=== PATIENT | male | born 1995 | race African-American/Black ===

== ENCOUNTER 2018-12-25 05:31 | Inpatient (IN) | payer MEDICAID ==
[~2018-12-25] VITALS: Ht 177.8 cm; Wt 56.4 kg
[2018-12-25 05:35] VITALS: Ht 177.8 cm; Wt 56.4 kg
[2018-12-25 06:37] LABS: BASOPHIL % 0.6 % (0-2); PLATELET COUNT 276 x10^3mcL (130-400)
[2018-12-25 06:40] LABS: RED CELL DISTRIBUTION WIDTH 14.7 % (11.5-14.5)
--- NOTE | 2018-12-25 06:52 | NUR ---
BIB AMBULANCE, PATIENT FOUND ASLEEP ON A BENCH, DIFFICULT TO AROUSE, PATIENT IS CONFUSED, AND REFUSES TO GIVE HIS NAME
[2018-12-25 06:59] LABS: CARBON DIOXIDE 32.5 mmol/L (21-32); CHLORIDE SERUM 103 mmol/L (98-107); CREATININE SERUM 0.9 mg/dL (0.7-1.3); GFR1 > 60 mL/min; GLUCOSE SERUM 104 mg/dL (74-106); POTASSIUM SERUM 3.6 mmol/L (3.5-5.1); SODIUM SERUM 141 mmol/L (136-145)
[2018-12-25 07:00] LABS: ALBUMIN 3.7 g/dL (3.4-5.0); ALKALINE PHOSPHATASE 100 U/L (46-116); ALT/SGPT 34 U/L (16-63); AST/SGOT 26 U/L (15-37); BILIRUBIN TOTAL 0.45 mg/dL (0.20-1.00); TOTAL PROTEIN, SERUM 7.3 g/dL (6.4-8.2)
--- NOTE | 2018-12-25 07:13 | NUR ---
PT IS AWAKE TO VERBAL STIMULI. PT STATED IS NAME IS YARELIS ENRIQUEZ WITH BIRTHDAY OF October.
--- NOTE | 2018-12-25 08:38 | NUR ---
STRAIGHT CATH PROCEDURE PERFORMED. PT TOLERATED WELL. CHAPARONED BY CHIKA MCKNIGHT. PT BEGAN LAUGHING DURING PROCEDURE.
--- NOTE | 2018-12-25 08:39 | NUR ---
PT REFUSES TO ANSWER ANY OTHER QUESTIONS AT THIS TIME AND REFUSES TO SPEAK TO US BUT RESPONDS TO VERBAL COMMAND
--- NOTE | 2018-12-25 09:34 | NUR ---
SPOKE WITH FOR TELE PSYCH CONSULT
--- NOTE | 2018-12-25 09:46 | NUR ---
PER , PT NEEDS TO BE PLACED ON 5150 FOR GRAVELY DISABLED. MADE AWARE
[2018-12-25 10:01] LABS: AMPHETAMINE QUAL UR NONE DETECTED (See below)
--- NOTE | 2018-12-25 10:03 | NUR ---
CALLED [facility], SPOKE TO MCKAY REGARDING NEED FOR OFFICER TO WRITE [phone]. PER MCKAY, OFFICER WILL CALL ME BACK. PT MOVED TO BED 4 IN VIEW OF NURSES STATION FOR CLOSER OBSERVATION. BELONGINGS REMOVED FROM PT AND PLACED IN RADIO ROOM.
--- NOTE | 2018-12-25 10:22 | NUR ---
[facility] CALLED AND STATED HE WOULD SEND AN OFFICER OUT TO WRITE [phone]
--- NOTE | 2018-12-25 11:08 | NUR ---
COLBY, [facility] OFFICER ARRIVED TO INTERVIEW PT.
--- NOTE | 2018-12-25 12:33 | NUR ---
OFFICER COLBY WROTE [phone] HOLD FOR [facility]
--- NOTE | 2018-12-25 13:17 | NUR ---
OFFICER Kristin CARIAS IDENTIFIED PT WITH FINGER SCANNER [facility]
--- NOTE | 2018-12-25 16:56 | NUR ---
PT REFUSES TO ANSWER QUESTIONS, WENT BACK TO SLEEP. OFFERED FOOD AT THIS TIME
--- NOTE | 2018-12-25 17:29 | NUR ---
PT AWAKE AND TAKING MONITOR LEADS OFF. PROVIDED PT WITH WATER. CURTAIN OPEN AND IN VIEW OF NURSES STATION
--- NOTE | 2018-12-25 18:07 | NUR ---
PROVIDED WITH DINNER TRAY; PT SITTING UP ON GURNEY EATING AT THIS TIME
--- NOTE | 2018-12-25 18:28 | NUR ---
CALLED REPORT TO GAYLA NG IN MED SURG
--- NOTE | 2018-12-25 19:05 | NUR ---
PT RECEIVED A/O X 2-3, SLEEPY, BUT EASILY AROUSABLE. PT ONLY ANSWERS TO CERTAIN QUESTIONS. WHEN ASKED PT'S NAME AND , PT DOES NOT RESPOND AND STARES BLANKELY. ASKED IF PT'S NAME WAS STEFANIA ENRIQUEZ, PT STATES, "YES." ASKED PT IF HIS WAS 93 (INCORRECT BDAY), PT STATES, "YES." ASKED PT IF HIS WAS 93 (CORRECT BDAY), PT STATES, "YES." MED-SURG, NO TELE, DENIES ANY CHEST PAIN. PULSES PALPABLE, NO EDEMA PRESENT. LUNG SOUNDS CTA, BREATHING EVEN AND UNLABORED, NO RESP DISTRESS NOTED. ABD SOFT AND FLAT, BOWEL TONES ACTIVE X4 QUAD, NO N/V PRESENT. VOIDS FREELY, URINAL AT BEDSIDE. SKIN IS INTACT. PT DENIES HAVING ANY PAIN AT THIS TIME. PT ON 5150 HOLD FOR GRAVELY DISABLED, PT DENIES HAVING ANY SUICIDAL IDEATION. PT RESISTIVE TO NURSING CARE. PT REFUSED IV ACCESS, NO IV AT THIS TIME. SITTER AT BEDSIDE. BED IN LOWEST SETTING, SIDE RAILS UP X2, CALL LIGHT WITHIN REACH. WILL CONT TO MONITOR.
[2018-12-25 19:10] VITALS: BP 114/70
--- NOTE | 2018-12-25 19:20 | NUR ---
RECEIVED PT FROM ED VIA LUPE. ORIENTED PT TO ROOM AND SURROUNDINGS. CALL LIGHT WITH IN REACH. ENDORSED TO PRIMARY NURSE RASHEL
[2018-12-25 20:21] VITALS: BP 104/63
--- NOTE | 2018-12-25 23:20 | NUR ---
PT AGREEABLE TO HAVING IV ACCESS. NEW IV INSERTED TO LFA, 20 G, FLUSHED WITH GOOD BLOOD RETURN. PT TOLERATED WELL. NO ACUTE DISTRESS NOTED. SITTER AT BEDSIDE. WILL CONT TO MONITOR.
--- NOTE | 2018-12-26 01:20 | NUR ---
PT RESTING IN BED WITH EYES CLOSED, BUT IS EASILY AROUSABLE. BREATHING IS EVEN AND UNLABORED, NO RESP DISTRESS NOTED. PT DENIES HAVING ANY PAIN AT THIS TIME. SL TO LFA, PATENT AND INTACT. PT REMAINS WITHDRAWN AND ONLY ANSWERS CERTAIN QUESTIONS. SITTER AT BEDSIDE, CALL LIGHT WITHIN REACH. CONTINUITY OF CARE ENDORSED TO LISA SHUKLA, ALL QUESTIONS AND CONCERNS ADDRESSED.
--- NOTE | 2018-12-26 01:21 | NUR ---
RECEIVED PATIENT AT THIS TIME. PATIENT IS AWAKE IN BED WATCHING TV. PATIENT ALERT ORIENTED TO SELF. BREATHING EVEN AND UNLABORED WITH NO SIGNS OF RESPIRATORY DISTRESS NOTED. IV LFA PATENT. NO SIGNS OF DISTRESS OR DISCOMFORT NOTED. SITTER AT BEDSIDE. SAFETY PRECAUTIONS IN PLACE. WILL CONTINUE TO MONITOR.
--- NOTE | 2018-12-26 02:04 | NUR ---
PATIENT ASKED FOR A SNACK. UNABLE TO ANSWER ANY QUESTIONS. WILL CONTINUE TO MONITOR. SITTER AT BEDSIDE.
--- NOTE | 2018-12-26 03:46 | NUR ---
PATIENT WAS SEEN MY SCHEDULING ANALYST WITH UI DESIGNER IN HAND ATTEMPTING TO LIGHT IT UP. INSTRUCTED PATIENT IMPORTANCE OF NOT USING UI DESIGNER INDOORS. UI DESIGNER TAKEN FOR SAFE KEEPING, CHARGE NURSE MADE AWARE.
--- NOTE | 2018-12-26 04:54 | NUR ---
PATIENT IS ALERT AND ORIENTED TO SELF. PATIENT UNABLE TO ANSWER QUESTIONS. LUNG SOUNDS CLEAR ON RA WITH NO RESP DISTRESS. PATIENT USES URINAL AT BEDSIDE. NO SIGNS OF PAIN OR DISCOMFORT NOTED. IV LFA PATENT, SL. PATIENT MEDICATED PER EMAR. SITTER AT BEDSIDE. WILL CONTINUE TO MONITOR AND ENDORSE CARE TO DAY SHIFT RN.
[2018-12-26 05:34] VITALS: BP 100/58
[2018-12-26 07:01] LABS: CALCIUM 9.1 mg/dL (8.5-10.1); CARBON DIOXIDE 28.3 mmol/L (21-32); CHLORIDE SERUM 103 mmol/L (98-107); CREATININE SERUM 0.9 mg/dL (0.7-1.3); GFR1 > 60 mL/min; GLUCOSE SERUM 94 mg/dL (74-106); POTASSIUM SERUM 3.9 mmol/L (3.5-5.1); SODIUM SERUM 136 mmol/L (136-145)
[2018-12-26 07:11] LABS: BASOPHIL % 0.6 % (0-2); PLATELET COUNT 290 x10^3mcL (130-400); RED CELL DISTRIBUTION WIDTH 13.5 % (11.5-14.5)
--- NOTE | 2018-12-26 07:17 | NUR ---
PATIENT IS ASLEEP AT THIS TIME, BREATHING EVEN AND UNLABORED NO SIGNS OF DISTRESS NOTED. SITTER AT BEDSIDE. ENDORSED CARE TO DAY SHIFT RN, ALL QUESTIONS ADDRESSED.
--- NOTE | 2018-12-26 07:35 | NUR ---
PT IS AAOX2-3. SLOW TO SPEAK, ONLY ANSWERS, YEAH, TO QUESTIONS. FOLLOWS SOME COMMANDS. NORMAL S1S2 NOTED. RESP EVEN AND UNLABORED. ON R/A. ABDOMEN SOFT, NONTENDER, NONDISTENDED. SKIN CDI, NO EDEMA. PERIPHERAL PULSES PALPABLE. IV CATH TO LFA PATENT WITH NO S/S OF INFECTION OR INFILTRATION NOTED. PT DENIES PAIN OR DISCOMFORT. BOTTOM CRANE OPERATOR IN ROOM ON ONE TO ONE SUPERVISION. CALL LIGHT WITHIN REACH. BED IN LOW POSITION.
[2018-12-26 07:43] VITALS: BP 100/63
--- NOTE | 2018-12-26 08:43 | NUR ---
PT IS CALM AND COOPERATIVE. DUE MED GIVEN. PT ON ANSWERS YES TO QUESTIONS. RESP EVEN AND UNLABORED. NO DISTRESS NOTED. CALL LIGHT WITHIN REACH.
--- NOTE | 2018-12-26 09:17 | NUR ---
REPORTED TO NELSY LAGOS NP THAT PT HAS REQUESTED TO SHOWER. KRISTIN STATE AN ORDER FOR SHOWER PRILEDGES WILL BE GIVEN.
--- NOTE | 2018-12-26 12:41 | NUR ---
DUE MED GIVEN. PT TAKEN TO SHOWER, STAYED IN BATHROOM FOR 30 MINUTES BUT WOULD NOT SHOWER. PT IS IN BED AT THIS TIME. CALM AND COOPERATIVE. DENIES PAIN OR DISCOMFORT. CALL LIGHT WITHIN REACH. NEIGHBORHOOD WORKER IN ROOM ON ONE TO ONE SUPERVISION.
--- NOTE | 2018-12-26 13:32 | NUR ---
Intervention/RDN Recommendation(s): 1. Continue on regular diet as tolerated.
--- NOTE | 2018-12-26 13:32 | NUR ---
Initial Nutrition Assessment- Dx: 5150, gravely disabled PMHx: unknown PSHx: unknown Labs: (12/26/18) Na 136, K 3.9, Glu 94, BUN 14, Cr 0.9, Ca 9.1, H/H 15/46 Meds: Ativan, Tylenol Diet: Regular PO Intakes: Pt is a new admit Ht: 70 inches (5'10") Wt: 56.444 kg (124 pounds) BMI: 17.9 kg/m2, underwt for age IBW: 166 pounds (75 kg) %IBW: 75% UBW: Unable to obtain Age: 23 Food Allergies: No Known Food Allergies Skin: Stefan 17 Edema: none noted GI: Last BM bowel sounds active, abd soft and round Pt admitted with dx: gravely disabled. Pt brought in to [facility] [place] by Mehrdad MENSAH. Per physician progress note (12/26), Pt more awake today, cooperative. Pt noted to have been inappropriately touching himself over night. Awaiting psych recommendations. Pt attempted to visit with Pt during lunch meal, but Pt was asleep & RDN and sitter were both unable to awake him by calling his name. Sitter reports Pt had a good appetite, no noticeable chewing/swallowing difficulties observed. Pt maintains a good appetite. Sitter denies N/V/D/C. Problem with: N: no V: no D: no C: no Problems with: Chewing: no Swallowing: no Current appetite: good; ate 100% of breakfast and lunch per sitter Recent wt changes: Unable to obtain Vitamin/Supplement: Unable to obtain Special Diet at Home: Unable to obtain Physical activity: Unable to obtain Education: Unable to obtain Estimated Nutritional Needs Based on actual body weight of 56 kg. Energy: 3665-8451 kcal/d (30-35 kcal/kg for underweight) Protein: 56-67 gm/d (1-1.2 gm/kg for underweight) Fluid: 1968-9476 mL/d (1 mL/kcal) or per MD. Nutrition Diagnosis 1. Underweight for age related to pathophysiological causes as evidenced by BMI of 17.9 kg/m2. Intervention/RDN Recommendation(s): 1. Continue on regular diet as tolerated. Monitor/Evaluate Goal: Intake via PO intakes to meet at least 75% of estimated needs with acceptable tolerance within 2-3 days. Monitor: PO intakes and/or nutrition support tolerance, Labs, GI function, Skin integrity, Weights. F/U in 7 days as low risk (01/02)
--- NOTE | 2018-12-26 15:05 | NUR ---
PT IS AAOX2-3. SLOW TO SPEAK, ONLY ANSWERS, YEAH, TO QUESTIONS. FOLLOWS SOME COMMANDS. NORMAL S1S2 NOTED. RESP EVEN AND UNLABORED. ON R/A. ABDOMEN SOFT, NONTENDER, NONDISTENDED. SKIN CDI, NO EDEMA. PERIPHERAL PULSES PALPABLE. IV CATH TO LFA PATENT WITH NO S/S OF INFECTION OR INFILTRATION NOTED. PT DENIES PAIN OR DISCOMFORT. AERIAL SURVEY TECHNICIAN IN ROOM ON ONE TO ONE SUPERVISION. CALL LIGHT WITHIN REACH. BED IN LOW POSITION.
[2018-12-26 16:00] VITALS: BP 114/66
--- NOTE | 2018-12-26 16:06 | NUR ---
(PSYCHIATRIST) HERE AND VERNELL PT. SPOKE TO KRISTIN(NURSE PRACTITIONER) ON THE PHONE AND MADE HER AWARE OF HIS RECOMMENDATION. RISPERDAL 1MG BID.
--- NOTE | 2018-12-26 16:29 | NUR ---
CALLED AND SPOKE TO KRISTIN(N.P.) TO FOLLOW UP RE-(PSYCHIATRIST) PSYCH MEDICATION THAT HE HAD RECOMMENDED, THAT HE MENTIONED TO HER. KRISTIN SAYS SHE WILL PUT THE ORDER IN, AWAITING FURTHER ORDER. MARTHA SHUKLA ASSIGNED TO THIS PT MADE AWARE OF ABOVE.
--- NOTE | 2018-12-26 17:05 | NUR ---
DUE MEDS GIVEN. PT IS CALM AND COOPERATIVE AT THIS TIME. RESP EVEN AND UNLABORED. NO DISTRESS NOTED. CALL LIGHT WITHIN REACH. BOILERMAKING SUPERVISOR AT BEDSIDE ON ONE TO ONE SUPERVISION.
--- NOTE | 2018-12-26 18:28 | NUR ---
PT AAOX2-3. CONFUSED AT TIMES. QUIET. FOLLOWS SOME COMMANDS. RESP EVEN AND UNLABORED. NO DISTRESS NOTED. DENIES PAIN AND DISCOMFORT. IV CATH TO LAF PATENT WITH NO S/S OF INFECTION OR INFILTRATION NOTED. CALL LIGHT WITHIN REACH. CONGRESSIONAL DISTRICT AIDE IN ROOM ON ONE TO ONE SUPERVISION. WILL ENDORSE ALL CARE TO ONCOMING NOC RN.
--- NOTE | 2018-12-26 19:37 | NUR ---
RECEIVED PATIENT FROM DAY SHIFT RN. PATIENT IS RESTING, PATIENT ALERT ORIENTED TO SELF. BREATHING EVEN AND UNLABORED WITH NO SIGNS OF RESPIRATORY DISTRESS NOTED. IV LFA PATENT, SL. NO SIGNS OF DISTRESS OR DISCOMFORT NOTED. SITTER AT BEDSIDE. SAFETY PRECAUTIONS IN PLACE. WILL CONTINUE TO MONITOR.
[2018-12-26 21:05] VITALS: BP 106/52
--- NOTE | 2018-12-27 00:44 | NUR ---
PATIENT AWAKE, ASKED FOR A SNACK. DENIES PAIN. UNABLE TO ANSWER ANY OTHER QUESTIONS. SAFETY PRECAUTIONS IN PLACE. SITTER AT BEDSIDE. WILL CONTINUE TO MONITOR.
--- NOTE | 2018-12-27 02:53 | NUR ---
PATIENT ASLEEP, NO SIGNS OF DISTRESS NOTED. SITTER AT BEDSIDE. WILL CONTINUE TO MONITOR.
--- NOTE | 2018-12-27 05:01 | NUR ---
PATIENT IS ALERT AND ORIENTED TO SELF. PATIENT UNABLE TO ANSWER QUESTIONS WHEN AWAKE. LUNG SOUNDS CLEAR ON RA WITH NO RESP DISTRESS. NO SIGNS OF PAIN OR DISCOMFORT NOTED. IV LFA PATENT, SL. PATIENT MEDICATED PER EMAR. PATIENT SLEPT MOST OF THE NIGHT WITH NO DISTRESS. SITTER AT BEDSIDE. WILL CONTINUE TO MONITOR AND ENDORSE CARE TO DAY SHIFT RN.
[2018-12-27 05:47] VITALS: BP 107/63
[2018-12-27 06:31] LABS: BASOPHIL % 0.6 % (0-2); PLATELET COUNT 273 x10^3mcL (130-400); RED CELL DISTRIBUTION WIDTH 13.6 % (11.5-14.5)
[2018-12-27 06:44] LABS: CALCIUM 9.1 mg/dL (8.5-10.1); CARBON DIOXIDE 28.1 mmol/L (21-32); CHLORIDE SERUM 103 mmol/L (98-107); CREATININE SERUM 0.9 mg/dL (0.7-1.3); GFR1 > 60 mL/min; GLUCOSE SERUM 97 mg/dL (74-106); SODIUM SERUM 136 mmol/L (136-145)
--- NOTE | 2018-12-27 07:28 | NUR ---
PATIENT IS AWAKE IN BED, DENIES ANY PAIN. NO SIGNS OF DISTRESS NOTED. SITTER AT BEDSDIE. ENDORSE CARE TO DAY SHIFT RN, ALL QUESTIONS ADDRESSED.
--- NOTE | 2018-12-27 08:00 | NUR ---
RECEIVED PATIENT WHO IS BEING SEEN BY DR DIXON AT THIS TIME. PATEINT HAS BEEN MASTERBATING ALMOST CONTINUALLY WHILE AWAKE. HE HAS A FLAT AFFECT AND IS WITH MINIMAL VERBALIZATION. LUNGS RE CLEAR AND BOWEL SOUNDS ACTIVE AND SKIN IS INTACT. PATIENT HAS SOME TRACE EDEMA TO THE LOWER EXTREMITIES AND DOES NOT APPEAR IN ANY ACUTE DISTRESS. REMAINS IN ONE TO ONE DUE TO 5150 DESIGNATION. PATIENT IS AWATING PLACEMENT WITH PSYCH. PATIENT HAS VITALS AT THIS TIME 97.7, 69,18, 107/63, 98% ON ROOM AIR. BRITTANY FARMERHS NO INIDATION OF DRUG USE ON AUDREY UDS AND AHD BEEN ON ATIVAN Q FOUR HOURS AND REMAIN CALM BUT STILL MASTERBATING. REFUSED THE MORPNIGN MEAL AND IS IN NO DISTRESS AT THIS TIME.
[2018-12-27 08:22] VITALS: BP 107/54
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
--- NOTE | 2018-12-27 14:40 | NUR ---
PATIENT HAS BEEN ANXIOUS AND ATTEMPTED TO LEAVE THE FLOOR AND WAS REDIRRECTED TO THE ROOM AGAIN. PATIENT HAS RECIEVED HIS ATIVAN BUT HE HAS BEEN GETTING MORE ANXIOUS TIME GOES ON. PATIENT HAS A SITTING AT BEDSIDE DUE TO 5150 HOLD AND HAS BEEN PER THE REPORT GRAVLY DISABLED AND NEEDS REDIRRECTION HE HAS FLAT AFFECT AND STILL DESPITE THE ATIVAN VERY AGITATED. WILL CALL THE DOCTOR FOR POSSIBLE ORDER FOR SOMETHING ELSE TO GIVE THE PATIENT.
--- NOTE | 2018-12-27 15:06 | NUR ---
SPOKE WITH THE MEDICAL DIR AND ADVISED THAT THE PATIENT IS VERY AGITATED DESPITE THE ATIVAN. ORDERS PENDING AT THIS TIME.
--- NOTE | 2018-12-27 15:13 | NUR ---
[facility] aware of patient and will fax chart to contracted facilities in attempt for inpatient placment. Will keep nursing staff informed.
[2018-12-27 17:10] VITALS: BP 104/57
--- NOTE | 2018-12-27 19:02 | NUR ---
PATIENT RESTING QUIETLY AND HELD THE ATIVAN AT 1600 DUE TO PATEINT HAD GOOD EFFECT FROMT HE HALDOL GIVEN IV. PATIENT DID NOT FIGHT STAFF AND TOLERATED THE INJECTION WITHOUT A PROBLEM. PATIENT WITH STITTER AST BEDSIDE AND PATIENT IS NOT MASTERBATING AT THIS TIME BUT SLEEPING.
--- NOTE | 2018-12-27 20:35 | NUR ---
RECEIVED PATIENT IN BED APPEARS SLEEPING AFTER PATIENT RECEIVED HALDOL FROM AM SHIFT. BREATHING EASY AND NONLABOR SATTING AT 98% RA. ABDOMEN SOFT AND NON TENDER WITH ACTIVE BS. IV TO LFA HEPLOCK. WILL CONTINUE TO MONITOR. SITTER AT BEDSIDE.
[2018-12-27 21:27] VITALS: BP 101/53
--- NOTE | 2018-12-28 01:16 | NUR ---
APPEARS SLEEPING WITH NO SIGN OF DISTRESS. BREATHING EASY AND NONLABOR.
--- NOTE | 2018-12-28 05:09 | NUR ---
At this teim there are no vacancy at [facility] intake Victorino-Jacob intake Stewart Marley-Calli intake [facility] intake Emelia SHUKLA , floor charge zaira made aware. will endorsed to AM shift.
--- NOTE | 2018-12-28 05:20 | NUR ---
SLEPT AT LONG INTERVALS. NO SIGN OF DISTRESS NOTED THE ENTIRE SHIFT. REMAINED CALM. ALL NEEDS ATTENDED.
--- NOTE | 2018-12-28 07:30 | NUR ---
RECEIVED PT. IN BED AWAKE, ALERT. PT. IS ONLY ORIENTED TO PERSON. NO SOB, NO N/V NOTED. PT. DENIES ANY PAIN AT THIS TIME. IV SITE NOTED TO Prieto SHARMA. PT. REFUSES TO WEAR SCD. FLOW FLOOR ATTENDANT AT BEDSIDE TO MAINTAIN SAFETY. BED IN LOW POS., CALL LIGHT WITHIN REACH. SIDE RAILS UP X3.
[2018-12-28 08:58] VITALS: BP 103/47
--- NOTE | 2018-12-28 10:56 | NUR ---
CC aware of need for placement. Contacted the contracted psych facilities and no available beds at this time. [facility] will continue to follow up through out shift
--- NOTE | 2018-12-28 17:36 | NUR ---
REMAINS IN STABLE CONDITION AT THIS TIME. PEOPLESOFT HCM DEVELOPER AT BEDSIDE TO MAINTAIN SAFETY. WILL CONTINUE TO MONITOR.
[2018-12-28 18:18] VITALS: BP 103/60
--- NOTE | 2018-12-28 19:46 | NUR ---
RECEIVED PATIENT IN BED AWAK,CALM AND COOPERATIVE WITH CARE AT THIS TIME. BREASTHING EASY AND NONLABOR SATTING AT 99% RA.IV TO LFA HEPLOCK FLUSHED WITH NS. SITTER AT BEDSIDE. WILL CONTINUE TO MONITOR.
[2018-12-28 20:58] VITALS: BP 98/48
--- NOTE | 2018-12-28 21:18 | NUR ---
Called [facility] and spoke with primary nurse Raissa requesting for new 5150 to be faxed. Once I receive the new 5150 I will continue to call for bed placement.
--- NOTE | 2018-12-28 21:59 | NUR ---
[place]150 [place] [facility] the following contracted facilities and currently no bed vacancies available ziggy. [facility], s/w Silas. [facility], s/w Ortiz. [facility], s/w Tawnya. [facility], s/w Aleyda. [facility], N[facility]A. [facility], s/w Cherelle. [facility], s/w Naomi. They will have discharges tomorrow, updated packet has been faxed.
--- NOTE | 2018-12-29 00:17 | NUR ---
STILL AWAKE AND REQUESTED TO SHOWER, SITTER WAITING OUTSIDE THE BATHROOM.
--- NOTE | 2018-12-29 05:12 | NUR ---
SLEPT AT LONG INTERVALS. NO SIGNIFICANT CHANGES NOTED THE ENTIRE SHIFT. REMAINED CALM AND ABLE TO FOLLOW SIMPLE COMMANDS.
--- NOTE | 2018-12-29 08:00 | NUR ---
ALERT AND ORIENTED TO SELF AND PLACE. SLOW TO RESPOND. AMBULATORY. GOOD APPETITE.NO S/S PAIN. SL TO LEFT FA PATENT. MED SURG PT. NO EYE CONTACT. OBEYS COMMANDS. BREATHING FREELY ON RA. VSS. CALL LIGHT WITHIN REACH.
[2018-12-29 09:42] VITALS: BP 102/39
[2018-12-29 17:00] VITALS: BP 106/75
--- NOTE | 2018-12-29 18:38 | NUR ---
ALERT AND ORIENTED X 2. MOSTLY KEEPS TO HIMSELF. GOT UP ONCE DRESSED TO LEAVE. SAID HE HAD A JOB TO GO TO. HE WILL FOLLOW COMMANDS WHEN REDIRECTED. BRP WITH SUPERVISION. GOOD APPETITE. VSS. SL TO LEFT FA. WATCHES TV. CALL LIGHT WITHIN REACH.
--- NOTE | 2018-12-29 19:11 | NUR ---
Called the following contracted facilities for bed placement. Currently there are no beds available. [facility], s/w Latrice. Full for the night. [facility], s/w Perico. Full for the night. [facility], s/w Tawnya, they have 28 psych patients pending in their ED. [facility], s/w Megan, requested to fax packet again because they do not keep packets over night. Packet has been refaxed. [facility], s/w Aleyda. [facility], s/w Mari.
--- NOTE | 2018-12-29 19:20 | NUR ---
PT RECEIVED A/O X2, SITTING AT EDGE OF BED. PT ABLE TO FOLLOW SIMPLE COMMANDS. MED-SURG, DENIES ANY CP/PRESSURE. PULSES PALPABLE, NO EDEMA PRESENT. LUNG SOUNDS CTA, BREATHING EVEN AND UNLABORED ON RA, NO RESP DISTRESS NOTED. ABD SOFT AND NONDISTENDED, BOWEL TONES ACTIVE X4 QUAD, DENIES N/V. VOIDS FREELY, BRP, URINAL AT BEDSIDE. AMBULATORY. SKIN IS INTACT. PT DENIES ANY PAIN AT THIS TIME. SL TO LFA, PATENT AND INTACT, SITE WNL. BED IN LOWEST SETTING, SIDE RAILS UP X2, CALL LIGHT WITHIN REACH. PT ON 5150 HOLD FOR GRAVELY DISABLED, FLAT AFFECT NOTED, WITHDRAWN. SITTER AT BEDSIDE. WILL CONTINUE TO MONITOR.
--- NOTE | 2018-12-29 19:40 | NUR ---
Megan from [facility] called and says patients [facility] is contracted in [place]. Will begin to call [facility].
[2018-12-29 20:18] VITALS: BP 98/49
--- NOTE | 2018-12-29 22:11 | NUR ---
PT C/O ANXIETY AND DIFFICULTY SLEEPING. PRN ATIVAN PO GIVEN ORDERED. NO ACUTE DISTRESS NOTED. CALL LIGHT WITHIN REACH. SITTER AT BEDSIDE. WILL CONT TO MONITOR.
--- NOTE | 2018-12-29 22:54 | NUR ---
Called the following contracted facilities in [facility]. [facility], s/w Colton, they [place] accept [place] 5150's. [facility], s/w Aubrie, no beds available. [facility] s/w Sophy, they are at full capacity. [facility], they only accept patients ages 60 and over.
--- NOTE | 2018-12-30 00:49 | NUR ---
PT AWAKE AND WATCHING TV. BREATHING IS EVEN AND UNLABORED, NO RESP DISTRESS NOTED. PT DENIES HAVING ANY PAIN AT THIS TIME. PT C/O LEAKING TO LFA IV SITE. NEW IV INSERTED TO RFA, 22G, PT TOLERATED WELL. IV TO LFA DC'd, CATH INTACT. SNACKS GIVEN PER PT'S REQUEST. SITTER AT BEDSIDE. CALL LIGHT WITHIN REACH. WILL CONTINUE TO MONITOR.
[2018-12-30 04:36] VITALS: BP 105/62
--- NOTE | 2018-12-30 06:21 | NUR ---
PT SLEPT WELL THROUGHOUT THE EVENING. BREATHING IS EVEN AND UNLABORED, NO RESP DISTRESS NOTED. PT DENIES HAVING ANY PAIN AT THIS TIME. SL TO RFA, PATENT AND INTACT. ALL NEEDS MET. SITTER AT BEDSIDE. CALL LIGHT WITHIN REACH. WILL ENDORSE CARE TO AM NURSE.
--- NOTE | 2018-12-30 07:30 | NUR ---
ALERT AND ORIENTED TO SELF AND PLACE. CALM,FOLLOWS COMMANDS. SLOW RESPONSES. BRP WITHOUT ASSISTANCE. WALKS AROUND ROOM AND BED FREQUENTLY. NO PHYSICAL LIMITATIONS. VSS. GOOD APPETITE. SL TO RT FA. BREATHING FREELY ON RA. SITTER IN ROOM. 5150. CALL LIGHT WITHIN REACH.
[2018-12-30 08:50] VITALS: BP 109/51
--- NOTE | 2018-12-30 13:01 | NUR ---
No update from contacted faciltities at this time. will continue to look for placement throguhout shift. will update unit when new information is available.
[2018-12-30 18:02] VITALS: BP 104/62
--- NOTE | 2018-12-30 18:45 | NUR ---
NO CHANGES. AMBULATORY. HAD A SHOWER TODAY. CHANGED HIS OWN LINENS. SUPERVISED BY SITTER FOR 5150. HAS BEEN CALM AND COOPERATIVE THIS SHIFT. BREATHING FREELY ON RA. SL TO RT FA. GOOD APPETITE. BRP. VSS. CALL LIGHT WITHIN REACH.
--- NOTE | 2018-12-30 18:49 | NUR ---
WAITING FOR TRANSFER TO PSYCH FACILITY.
[2018-12-30 19:30] VITALS: BP 117/55
--- NOTE | 2018-12-30 19:30 | NUR ---
RECEIVED PT AWAKE ALERT TO NAME AND BIRTHDATE.COLORING BOOKS AT THIS TIME.APPEARS CALM.ON 5150 HOLD GRAVELY DISABLED.NO AGITATION NOTED.REQUESTING FOR MORE CRACKERS,BP 117/55 MMHG,HR 89.NURSE AT BEDSIDE TO ASSIST WITH ADLS.WILL CONTINUE TO MONITOR.
--- NOTE | 2018-12-30 21:53 | NUR ---
At this time there are no beds available at any [facility] the [facility]ignated [facility] Dinora Floor charge nurse at [facility] made aware. Will continue to make calls for placement ,and notify CVharge nurse if placement is found.
--- NOTE | 2018-12-31 04:46 | NUR ---
PT SLEPT WELL ALL NIGHT.NO AGITATION NOTED.NURSE AT BEDSIDE TO ASSIST WITH ADLS.DENIES ANY PAIN OR DISCOMFORT.ALL NEEDS MET.WILL CONTINUE TO MONITOR.
[2018-12-31 05:41] VITALS: BP 115/71
--- NOTE | 2018-12-31 07:35 | NUR ---
RECEIVED PATIENT SITTING UP IN BED A/O X2, ABLE TO MAKE NEEDS KNOWN AND FOLLOW COMMANDS. BREATHING EVEN UNLABBORED ON RA, NO DISTRESS NOTED. IV TO RFA H/L INTACT AND PATENT FREE FROM REDNESS AND INFILTRATION. PATIENT IS CALM WITH CARE AT THIS TIME. NURSE AID AT BEDSIDE FOR SAFETY, PATIENT IS ON 5150 GRAVELY DISABLED. ALL NEEDS ATTENDED TO. SAFETY PRECAUTIONS MAINTAINED. WILL MONITOR.
[2018-12-31 07:45] VITALS: BP 115/71
--- NOTE | 2018-12-31 08:00 | NUR ---
PATIENT PROVIDED ITEMS TO SHOWER, COVERED IV TO RFA WITH TAPE. NURSE AID AT BEDSIDE FOR SAFETY. ALL NEEDS ATTENDED TO. SAFETY PRECAUTIONS MAINTAINED.
--- NOTE | 2018-12-31 11:05 | NUR ---
No updates from contacted hospitals at this time. will continue to look for placement throughout shift. will update unit when new information has been recieved.
--- NOTE | 2018-12-31 12:00 | NUR ---
PATIENT SEEN STANDING UP IN ROOM BY BEDSIDE, NO DISTRESS NOTED. NURSE AID AT BEDSIDE FOR SAFETY. ALL NEEDS ATTENDED TO. SAFETY PRECAUTIONS IN PLACE.
--- NOTE | 2018-12-31 17:35 | NUR ---
PATIENT SITTING UP IN BED EATING DINNER, NO DISTRESS NOTED. SAFETY PRECAUTIONS MAINTAINED.
[2018-12-31 17:54] VITALS: BP 108/65
--- NOTE | 2018-12-31 19:00 | NUR ---
PATIENTS IV INFILTRATED, REMOVED CATH INTACT. NEW IV PLACED TO RFA, GOOD BLOOD RETURN, FLUSHED WELL WITH 10 ML NS. PATIENT TOLERATED WELL, NO ACUTE CHANGES DURING SHIFT. ALL NEEDS ATTENDED TO. NURSE AID AT BEDSIDE FOR SAFETY. WILL ENDORSE CARE TO ONCOMING NURSE.
[2018-12-31 19:33] VITALS: BP 108/57
--- NOTE | 2018-12-31 19:45 | NUR ---
RECEIVED PT AWAKE, ALERT AND ORIENTED TO NAME AND , CLEAR SPEECH, RESPONDS TO VERBAL COMMANDS; ABLE TO VERBALIZE NEEDS. NO DISTRESS NOTED. DENIES ANY PAIN AT THIS TIME. BREATHING E/U, ON RA. IV TO RFA SALINE LOCKED AND FREE OF SWELLING, REDNESS AND PAIN. ALL SAFETY MEASURES MAINTAINED. PT ON 5150 HOLD, 1:1 SITTER AT BEDSIDE FOR SAFETY. CALL LIGHT AND PERSONAL BELONGINGS AT BEDSIDE. WILL CONTINUE TO MONITOR.
--- NOTE | 2018-12-31 21:20 | NUR ---
Called the following contracted facilities. Currently no available beds tonight. [facility], s/w Yovany. [facility], s/w Latrice. [facility], s/w Yue. [facility], s/w Tim. [facility], s/w Ai. [facility], s/w Brittany. [facility], s/w Kanwal, they can not accept out of [address] [facility], s/w Lisa. [facility], s/w Lian, can not accept out of [address] [facility], [facility]w Fatimah. [facility], s/w Tomas. can not accept out of [facility]. [facility], s/w Gumaro.
--- NOTE | 2018-12-31 23:17 | NUR ---
PT RESTING WITH EYES CLOSED AT THIS TIME. BREATHING IS E/U; VISIBLE CHEST RISE AND FALL NOTED. NO INDICATION OF DISTRESS OR PAIN NOTED. SAFETY MEASURES MAINTAINED. CALL LIGHT AND PERSONAL ITEMS IN REACH. 1:1 SITTER AT BEDSIDE. WILL CONTINUE TO MONITOR.
--- NOTE | 2019-01-01 03:30 | NUR ---
PT WOKE UP ASKING FOR CRACKERS. NO DISTRESS. NO C/O PAIN. CALM AND COOPERATIVE WITH CARE. WILL CONTINUE TO MONITOR.
--- NOTE | 2019-01-01 05:12 | NUR ---
PT RESTED INTERMITTENTLY DURING THE NIGHT WITH NO DISTRESS OR ACUTE CHANGES IN CONDITION. PT REMAINS ALERT AND ORIENTED TO BASELINE. NO C/O PAIN OR DISCOMFORT NOTED. IV INTACT TO RFA, SALINE LOCKED. 1:1 SITTER AT BEDSIDE. ALL SAFETY PRECAUTIONS MAINTAINED. CALL LIGHT IN REACH. WILL ENDORSE CARE TO AM NURSE AND CONTINUE TO MONITOR.
[2019-01-01 05:21] VITALS: BP 99/49
--- NOTE | 2019-01-01 07:05 | NUR ---
RECEIVED REPORT FROM PAPER CONE MACHINE OPERATOR NURSE AT THIS TIME. PATIENT RESTING COMFORTABLY IN BED. NO APPARENT DISTRESS NOTED. BREATHING EVEN AND UNLABORED. PATIENT DENIES CHEST PAIN AT THIS TIME. IV PATENT AND INTACT. ALL QUESTIONS AND CONCERNS ADDRESSED. ALL NEEDS ATTENDED TO. WILL CONTINUE TO MONITOR
[2019-01-01 08:32] VITALS: BP 122/81
--- NOTE | 2019-01-01 09:30 | NUR ---
MORNING MEDICATION ADMINISTERED. PATIENT TOLERATED MEDICATION WELL. NO ADVERSE EFFECTS NOTED. ALL NEEDS ATTENDED TO. WILL CONTINUE TO MONITOR
--- NOTE | 2019-01-01 12:51 | NUR ---
PATIENT SITTING UP IN BED EATING LUNCH AT THIS TIME. PATIENT TOLERATING DIET WELL. NO APPARENT DISTRESS OR DISCOMFORT NOTED. ALL NEEDS ATTENDED TO. WILL CONTINUE TO MONITOR
--- NOTE | 2019-01-01 16:38 | NUR ---
No bed vacancies at the following facilities: [facility], [place], operated [facility]
--- NOTE | 2019-01-01 17:48 | NUR ---
PATIENT SITTING UP IN BED EATING DINNER AT THIS TIME. PATIENT TOLERATING DINNER WELL. NO APPARENT DISTRESS NOTED. ALL NEEDS ATTENDED TO. SITTER AT BEDSIDE TO PROMOTE PATIENT SAFETY
[2019-01-01 18:27] VITALS: BP 123/86
--- NOTE | 2019-01-01 18:49 | NUR ---
PATIENT RESTING COMFORTABLY IN BED AT THIS TIME. NO DISTRESS OR DISCOMFORT NOTED. IV PATENT AND INTACT. ALL QUESTIONS AND CONCERNS ADDRESSED. SAFETY PRECAUTIONS MAINTAINED. ALL NEEDS ATTENDED TO. SITTER AT BEDSIDE TO PROMOTE PATIENT SAFETY. WILL ENDORSE ALL CARE TO PMP CERTIFIED PROJECT MANAGER NURSE
--- NOTE | 2019-01-01 19:00 | NUR ---
PT RECIEVED FROM THE DAY SHIFT RN, PT IS ALERT AND AWAKE AT THIS TIME. NO ACUTE DISTRESS NOTED, PT IS AWAKE AND WATCHING TV AT THIS TIME. NO SOB NOTED. NO COMPLAINT OF PAIN AT THIS TIME. SAEFTY AND COMFORT MEASURES MAINTAINED, BED IN LOWEST POSITION, CALL LIGHT WITHIN REACH. WILL CONTINUE TO MONITOR AT THIS TIME.
[2019-01-01 20:18] VITALS: BP 101/52
--- NOTE | 2019-01-02 01:10 | NUR ---
PT IS RESTING IN BED WITH EYES CLOSED AT THIS TIME. NO ACUTE DISTRESS NOTED. SITTER AT THE BEDSIDE. SAFETY AND COMFORT MEASURES MAINTAINED, CALL LIGHT WITHIN REACH. WILL CONTINUE TO MONITOR AT THIS TIME.
--- NOTE | 2019-01-02 03:07 | NUR ---
PT IS RESTING IN BED WITH EYES CLOSED AT THIS TIME. NO ACUTE DISTRESS NOTED, NO SOB NOTED. PT HAS NO COMPLAINTS OF PAIN A THIS TIME. SITTER AT THE BEDSIDE. SAFETY AND COMFORT MEASURES MAINTAINED, BED IN LOWEST POSITION, CALL LIGHT WITHIN REACH. WILL CONTINUE TO MONITOR AT THIS TIME.
[2019-01-02 05:32] VITALS: BP 100/57
--- NOTE | 2019-01-02 05:38 | NUR ---
PT HAS SLEPT IN LONG INTERVALS THROUGHOUT THE SHIFT, NO REMARKABLE EVENTS OCCURED THROUGHOUT THE SHIFT. PT HAS BEEN CALM AND COOPERATIVE [facility] CARE. NO ACUTE DISTRESS NOTED. PT AWAITING PLACEMENT AT THIS TIME. SITTER AT THE BEDSIDE. NO SOB NOTED. SAFETY AND COMFORT MEASURES MAINTAINED, BED IN LOWEST POSIITON, CALL LIGHT WITHIN REACH, WILL ENDORSE CONTINUITY OF CARE TO THE ONCOMING RN. WILL CONTINUE TO MONITOR.
[2019-01-02 06:58] LABS: BASOPHIL % 0.6 % (0-2); PLATELET COUNT 275 x10^3mcL (130-400)
[2019-01-02 07:00] LABS: RED CELL DISTRIBUTION WIDTH 14.8 % (11.5-14.5)
--- NOTE | 2019-01-02 07:11 | NUR ---
RECEIVED REPORT FROM NO EXPERIENCE NURSE AT THIS TIME. PATIENT RESTING COMFORTABLY IN BED WATCHING TV. NO APPARENT DISTRESS NOTED. BREATHING EVEN AND UNLABORED. PATIENT DENIES CHEST PAIN AT THIS TIME. IV PATENT AND INTACT. ALL QUESTIONS AND CONCERNS ADDRESSED. ALL NEEDS ATTENDED TO. SITTER AT BEDSIDE TO PROMOTE PATIENT SAFETY.
[2019-01-02 07:17] LABS: CALCIUM 8.9 mg/dL (8.5-10.1); CARBON DIOXIDE 32.7 mmol/L (21-32); CHLORIDE SERUM 104 mmol/L (98-107); CREATININE SERUM 0.9 mg/dL (0.7-1.3); GFR1 > 60 mL/min; GLUCOSE SERUM 88 mg/dL (74-106); POTASSIUM SERUM 4.2 mmol/L (3.5-5.1); SODIUM SERUM 142 mmol/L (136-145)
[2019-01-02 08:57] VITALS: BP 125/55
--- NOTE | 2019-01-02 09:45 | NUR ---
MORNING MEDICATION ADMINISTERED. PATIENT TOLERATED MEDICATION WELL. NO ADVERSE EFFECTS NOTED. ALL NEEDS ATTENDED TO. SITTER AT BEDSIDE TO PROMOTE PATIENT SAFETY
--- NOTE | 2019-01-02 10:01 | NUR ---
No update from contacted facilities at this time. will continue to look for placement throughout shift. will update unit when new info has been received.
--- NOTE | 2019-01-02 13:00 | NUR ---
PATIENT SITTING UP IN BED EATING LUNCH AT THIS TIME. PATIENT TOLERATING DIET WELL. NO APPARENT DISTRESS OR DISCOMFORT NOTED. ALL NEEDS ATTENDED TO. SITTER AT BEDSIDE TO PROMOTE PATIENT SAFETY
--- NOTE | 2019-01-02 15:04 | NUR ---
Follow-up Nutrition Assessment Dx: 5150 Gravely disabled Labs: (01/04) all labs WNL Meds: Ativan, Risperdal and Tylenol Current Diet:Regular PO intake: (12/31) B:100% L:100% D:100% snack: Artem crackers and milk (01/01) B:100%D:100% no lunch intake recorded (01/02) B:100% snack: aretm crackers, saltine crackers and sandwich Weights: (12/26) 124#, 56.4kg (01/02) 126# wr increase possibly due to increased PO intake Skin: intact Edema: None Last BM: 12/31 Per progress note 01/02, no acute events overnight. Psych is following-pt continues on 5150 hold. Pt is pending transfer to psych [facility]. During visit, pt was seen laying in bed. Pt with good appetite, eating 100% plus snacks with no c/o GI issues. Estimated Nutritional Needs based on actual body weight:56kg Energy: 1680-1960kcal/day (30-35kcal/kg for underweight) Protein: 56-67g/day (1-1.2g/kg for underweight) Fluid: 1680-1960ml/day (1ml/kcal) or per doctor Nutrition Diagnosis 1. 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 Continue Regular diet as tolerated Monitor/Evaluate Previous goal: PO intake at least 75% of estimated needs (met) Goal: PO intake at least 75% of estimated needs and gradual wt gain Monitor: PO intake, Labs, GI function and wts F/U in 7 days as low risk: 01/09
--- NOTE | 2019-01-02 15:05 | NUR ---
1. Continue Regular diet as tolerated
[2019-01-02 17:48] VITALS: BP 111/47
--- NOTE | 2019-01-02 18:06 | NUR ---
PATIENT SITTING UP IN BED EATING DINNER AT THIS TIME. PATIENT TOLERATING DIET WELL. NO APPARENT DISTRESS NOTED. SITTER AT BEDSIDE TO PROMOTE PATIENT SAFETY. WILL CONTINUE TO MONITOR
--- NOTE | 2019-01-02 18:41 | NUR ---
No updates from contacted facilities today, no beds available. will endorse to hourly shift manager to continue looking for placement.
--- NOTE | 2019-01-02 19:00 | NUR ---
PATIENT RESTING COMFORTABLY IN BED AT THIS TIME. NO APPARENT DISTRESS OR DISCOMFORT NOTED. IV PATENT AND INTACT. ALL QUESTIONS AND CONCERNS ADDRESSED. SAFETY PRECAUTIONS MAINTAINED. ALL NEEDS ATTENDED TO. SITTER AT BEDSIDE TO PROMOTE PATIENT SAFETY. WILL ENDORSE ALL CARE TO AGRICULTURAL EQUIPMENT MECHANIC NURSE
--- NOTE | 2019-01-02 19:25 | NUR ---
RECEIVED PT SITTING IN BED. HE IS ALERT,ORIENTED TO PERSON, PLACE AND TIME. HE ANSWERS APPROPRIATELY AT THIS TIME. PT APPEARS TO BE BUSY WRITING. HE HAS NO C/O HEADACHE AND DIZZINESS. NO SOB ON RA. HE HAS NO C/O PAIN. W/ HL TO RTFA INTACT. CALL LIGHT W/IN REACH. SITTER AT BEDSIDE.
[2019-01-02 21:02] VITALS: BP 104/56
--- NOTE | 2019-01-02 22:00 | NUR ---
PT IN LYING DOWN IN BED AND APPEARS TO BE SHAKING IN BED IF DOING SOMETHING UNDER THE COVERS. ASKED PT HOW HE IS AND HE ANSWERED" I'M SLEEPING". WILL CONTINUE MONITOR PT.
--- NOTE | 2019-01-02 23:00 | NUR ---
PT APPEARS TO BE SLEEPING COMFORTABLY. NO S/S OF DISTRESS.
--- NOTE | 2019-01-03 01:33 | NUR ---
PT AWAKE AT THIS TIME; HE APPEARS CALM AND WRITING ON HIS BOOK.
--- NOTE | 2019-01-03 02:30 | NUR ---
PT AAPPEARS TO BE SLEEPING COMFORTABLY.
--- NOTE | 2019-01-03 03:03 | NUR ---
Spoke to Charge nurse Emelia SHUKLA, she is made aware 5150 , she stated pt will be revaluated by Psych in the AM.
--- NOTE | 2019-01-03 03:15 | NUR ---
PT AWAKE AND WRITING ON HIS BOOK AGAIN. NO C/O DISCOMFORT. SITTER AT BEDSIDE.
[2019-01-03 05:09] VITALS: BP 115/65
--- NOTE | 2019-01-03 05:24 | NUR ---
PT SLEPT ON AND OFF. HE WAS CALM AND COOPERATIVE DURING THE NIGHT. HE WAS MEDICATED FOR C/O BODY PAIN X1. HL TO RTFA INTACT. ALLNEEDS ATTENDED TO, SITTER REMAINS AT BEDSIDE FOR SAFETY.
--- NOTE | 2019-01-03 07:40 | NUR ---
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 EVEN AND UNLABORED. LUNG SOUNDS CTA. ON R/A. NORMAL S1S2 NOTED. IV CATH TO RFA PATENT, N/S LOCKED, SITE SHOWS NO S/S OF INFECTION OR INFILTRATION. PT DENIES PAIN OR DISCOMFORT AT THIS TIME. CALL LIGHT WITHIN REACH. SPOT WELDER LINE IN ROOM ON ONE TO ONE SUPERVISION.
[2019-01-03 08:06] VITALS: BP 117/66
--- NOTE | 2019-01-03 09:01 | NUR ---
DUE MED GIVEN. PT CALM AND COOPERATIVE. FLUIDS ENCOURAGED. PT DENIES PAIN AND DISCOMFORT. CALL LIGHT WITHIN REACH. MARKETING PRODUCTION COORDINATOR IN ROOM ASSISTING WITH ADLS AND ON ONE TO ONE SUPERVISION.
--- NOTE | 2019-01-03 13:00 | NUR ---
PT IN BED WATCHING TV. LUNCH COMPLETED. PT DENIES PAIN OR DISCOMFORT. FLUIDS ENCOURAGED. CALL LIGHT WITHIN REACH. APPRENTICE PHOTOGRAPHER IN ROOM ON ONE TO ONE SUPERVISION.
--- NOTE | 2019-01-03 15:58 | NUR ---
PT RECEIVING X-RAY OF SHOULDER, ULNA AND FOREARM AT THIS TIME.
[2019-01-03 17:25] VITALS: BP 109/61
--- NOTE | 2019-01-03 18:35 | NUR ---
PT IS AAOX3, CONFUSED AT TIMES. DENIES PAIN OR DISCOMFORT. RESP EVEN AND UNLABORED, NO DISTRESS NOTED. IV CATH TO RFA IS PATENT WITH NO S/S OF INFECTION NOTED. CALL LIGHT WITHIN REACH. LOCK UP WORKER IN ROOM ON ONE TO ONE SUPERVISION. WILL ENDORSE ALL CARE TO ONCOMING NOC RN.
--- NOTE | 2019-01-03 19:15 | NUR ---
RECEIVED REPORT FROM MARTHA.PT CAME FROM THE BATHROOM. NO DISTRESS NOTED. DENIES ANY PAIN AT THIS TIME. IV SITE PATENT AND INTACT.ED IN LOWEST POSITION,CALL LIGHT WITHIN REACH. WILL CONTINUE TO MONITOR.
[2019-01-03 20:40] VITALS: BP 113/43
--- NOTE | 2019-01-04 02:43 | NUR ---
Per Charge nurse Dinora RN , pt. still needs to be evaluated in the morning by Psych.
--- NOTE | 2019-01-04 05:03 | NUR ---
PT APPEARS TO BE SLEEPING.NO DISTRESS NOTED. NO S/S OF PAIN. BED IN LOWEST POSITION,CALL LIGHT WITHIN REACH. SITTER AT BEDSIDE FOR SAFETY.WILL CONTINUE TO MONITOR.
[2019-01-04 06:19] VITALS: BP 105/48
--- NOTE | 2019-01-04 07:31 | NUR ---
CARE ENDORSED TO DAY NURSE
--- NOTE | 2019-01-04 08:40 | NUR ---
PATIENT SEATED AT BEDSIDE. NO COMPLAINTS OF PAIN, DENIES NAUSEA, VOMITTING. PATIENT COOPERATIVE. IV INTACT. OFFERED FURTHER ASSISTANCE.
[2019-01-04 09:21] VITALS: BP 129/64
--- NOTE | 2019-01-04 09:40 | NUR ---
PATIENT STANDING BY BEDSIDE. NO COMPLAINTS OF PAIN OR DISCOMFORT. BSW NELSY WITH PATIENT, STATED ONCE PATIENT IS CLEARED BY PSYCHOLOGIST, HE COULD LEAVE THE HOSPITAL. PATIENT BEGAN DRESSING HIMSELF, NOW AT BEDSIDE TABLE WITH NOTEBOOK. X1 VOID IN BR.
--- NOTE | 2019-01-04 12:05 | NUR ---
PATIENT PACING AT BEDSIDE. NO COMPLAINTS OF PAIN. PATIENT REMAINS CALM AND COOPERATIVE. WALKED AROUND UNIT WITH KERI JACKSON TO EXPEND ENERGY. NON EFFECTIVE. PATIENT OFFERED PRN MEDICATIION, AWA ELIZABETH.
--- NOTE | 2019-01-04 13:13 | NUR ---
DR. GARCIA AT BEDSIDE SEEN PATIENT AND DISCUSS POC, ASKING PATIENT WHAT PATIENT WANT TO DO AND PLAN, PATIENT REPLY WHERE HE COULD GO AND GET SUPPORT. PER DR. GARCIA PATIENT CLEARED AND PATIENT NEED TO STAY ON MEDICATIONS. PATIENT VERBALIZE UNDERSTAND.
--- NOTE | 2019-01-04 13:22 | NUR ---
PATIENT AT BEDSIDE. SPOKE WITH DR. HUTCHINS WHO HAS CLEARED PATIENT FOR DISCHARGE. SPOKE WITH CHERRIE WHITTINGTON VIA PHONE FOR DISCHARGE ORDERS. BUS PASSES REQUESTED FOR PATIENT PER REQUEST. DISCHARGE ORDERS VERIFIED BY CHERRIE WHITTINGTON.
--- NOTE | 2019-01-04 14:00 | NUR ---
CONTACTED CHERRIE WHITTINGTON ABOUT PATIENT DISCHARGE PRESCRIPTIONS. NO NEW PRESCRIPTIONS WRITTEN BY DR. GARCIA. CHERRIE WHITTINGTON STATED THAT SHE IS OUT OF HOSPITAL AND WILL RETURN IN 1 HOUR TO WRITE PRESCRIPTION FOR PATIENT. LOAN UNDERWRITER SIXTO PRESENT IN PATIENT ROOM TO CONFIRM WITH PATIENT THAT HE DOES NOT NEED ADDITIONAL RESOURCES. ALEKSANDR MELGOZA PROVIDED TWO BUS PASSES FOR PATIENT. WILL CONTINUE TO MONITOR UNTIL HEADRIG SAWYER RETURNS.
[2019-01-04 14:06] VITALS: BP 129/64
--- NOTE | 2019-01-04 15:50 | NUR ---
PATIENT ALREADY DRESS AND READY TO GO, DISCHARGE INSTRUCTION EXPLAINED TO PATIENT, INSTRUCTION PATIENT TO FOLLOW UP WITH PCP AND TAKE MEDICATION PRESCRIBED. PATIENT VERBALIZE UNDERSTAND. PRESCRIPTION FOR RISPERIDAL GIVEN TO PATIENT. IV REMOVED WITH CATHETER INTACT, NO REDNESS OR SWELLING NOTED FROM SITE, GAUZES APPLIED TO SITE. NO BLEEDING NOTED. NUCLEAR POWERPLANT MECHANIC HELPER PAT ASSISTING PATIENT OUT TO LOBBY WITH ALL BELONGINGS WITH HIM.
--- NOTE | 2019-01-04 15:59 | NUR ---
BUS PASS GAVE TO PATIENT WITH DISCHARGE PACKAGE.
== END 2019-01-04 15:49 | disposition home or self-care (01) | DRG 751 ==
LOC: ED 05:31 → EDBD 05:31 → MU 14:45
PROVIDERS: Emergency Medicine; Family Medicine; ADMIT Internal Medicine
DX: F29 Unspecified psychosis not due to a substance or known physiological condition (principal); E43 Unspecified severe protein-calorie malnutrition; Z59.0 Homelessness
CPT/HCPCS: G0480; J1630; J2060; J7030